=== PATIENT | male | born 1945 | race Caucasian/White ===

== ENCOUNTER 2018-04-16 11:51 | Inpatient (IN) | payer MEDICARE, OTHER ==
[~2018-04-16] VITALS: Ht 180.3 cm; Wt 100.4 kg
[2018-04-16] MEDS ORDERED: SODIUM CHLORIDE FLUSH 10 ML SYR INJ PRN (12:00)
[2018-04-16 13:18] LABS: BASOPHILS # (AUTO) 0.1 (0.0-0.1); BASOPHILS % 1.2 % (0.0-1.0); EOSINOPHILS # (AUTO) 0.2 (0.0-0.4); EOSINOPHILS % 2.7 % (0.0-6.0); HEMATOCRIT 47.8 % (38.2-49.6); HEMOGLOBIN 16.5 g/dL (14.0-18.0); LYMPHOCYTES # (AUTO) 1.9 (1.0-3.2); LYMPHOCYTES % 22.3 % (18.0-39.1); MEAN CORPUSCULAR HGB CONC 34.5 g/dL (31-35); MEAN CORPUSCULAR VOLUME 89.8 fL (81-99); MONOCYTES # (AUTO) 0.7 (0.2-0.8); MONOCYTES % 8.1 % (4.4-11.3); NEUTROPHILS # (AUTO) 5.5 (2.1-6.9); NEUTROPHILS % 65.2 % (38.7-80.0); PLATELET COUNT 206 x10e3/uL (140-360); RED BLOOD COUNT 5.32 x10e6/uL (4.3-5.7); RED CELL DISTRIBUTION WIDTH 12.7 % (11.7-14.4)
[2018-04-16] MEDS ORDERED: ASPIRIN 81 MG ENTERIC COATED PO SCH ×2 (13:30→21:00)
[2018-04-16 13:32] LABS: ALBUMIN 4.2 g/dL (3.5-5.0); ALBUMIN/GLOBULIN RATIO 1.3 (0.8-2.0); ANION GAP 16.6 mmol/L (8-16); CREATININE, SERUM 1.21 mg/dL (0.72-1.25); POTASSIUM 3.6 mmol/L (3.5-5.1)
[2018-04-16 14:06] VITALS: BP 185/84
[2018-04-16 14:09] LABS: CREATININE, SERUM 1.2 mg/dL (0.72-1.25)
[2018-04-16] MEDS ORDERED: GADOBENATE DIMEGLUMINE 1 ML IV ONE (14:21)
[2018-04-16] MEDS ORDERED: ASPIR 8181 MG PO (15:35)
[2018-04-16] MEDS ORDERED: METOPROLOL SUCC25 MG PO (15:35)
[2018-04-16] MEDS ORDERED: ZETIA10 MG PO (15:35)
[2018-04-16] MEDS ORDERED: LIPITOR40 MG PO (15:36)
[2018-04-16 16:15] VITALS: BP 187/85
[2018-04-16] MEDS ORDERED: ONDANSETRON HCL INJ 2 MG/ML VIAL IV PRN (17:00)
[2018-04-16] MEDS ORDERED: ACETAMINOPHEN 325 MG TAB PO PRN (17:00)
--- NOTE | 2018-04-16 17:18 | Diagnostic Imaging Report ---
History:Bitemporal hemianopsia Comparison studies: None Technique: Precontrast axial and coronal T1 and T2 and sagittal T2 through the orbits, Post-contrast axial and coronal T1 and coronal T2 through the orbits with fat saturation Intravenous contrast: 20 cc of MultiHance. Findings: Right orbit Globe: Normal in size and shape. No masses Intraconal space: No masses or abnormal enhancement. Optic nerve: Normal in size and signal. Extraocular muscles: Normal in size and symmetric Lacrimal gland: Normal in size. No masses. Left orbit Globe: Normal in size and shape. No masses Intraconal space: No masses or abnormal enhancement. Optic nerve: Normal in size and signal. Extraocular muscles: Normal in size and symmetric Lacrimal gland: Normal in size. No masses. Orbital apices: No abnormalities. Optic chiasm: Normal in size and signal intensity. Cavernous sinuses: Normal in size and symmetric. No masses. No signal abnormalities in the visualized sections through the brain. IMPRESSION: 1. Normal MRI of the orbits. 2. Refer to the brain MRI obtained at the same time for description of a partially visualized acute nonhemorrhagic enhancing right medial VASCULAR SURGERY PHYSICIAN temporo-occipital vascular insult. Signed by: Dr. Marcos Oliver M.D. on 04/16/2018 5:15 PM
--- NOTE | 2018-04-16 17:44 | Diagnostic Imaging Report ---
History: Bitemporal hemianopsia Comparison studies: None Technique: Pre-contrast: Sagittal T2; axial T1-IR, SWI, DWI, T2 FLAIR Post-contrast: Axial, coronal and sagittal T1. Intravenous contrast: 20 cc of MultiHance. Findings: Scalp: No abnormal signal. No masses. Bone marrow: Normal in signal intensity. Extra-axial: No masses, fluid collections or hemorrhage. Brain sulci: Appropriate for age. Ventricles: Normal in size . No hydrocephalus. Parenchyma: An acute nonhemorrhagic vascular insult (hyperintense on the T2 and T2 FLAIR and associated with restricted diffusion) centered in the inferomedial aspect of the right occipital lobe (lingula generous, extends anteriorly along the medial aspect of the right temporal lobe. It is associated with uniform enhancement. Mass effect is regional. No shift. No additional acute vascular insults. Scattered T2 FLAIR hyperintense foci in the supratentorial white matter are nonspecific small vessel ischemic changes. No masses, hemorrhage, additional acute or chronic vascular insults. No enhancing abnormalities. Suprasellar region: No abnormalities. Craniocervical junction: No abnormalities. Patent foramen magnum. No Chiari one malformation.. Vessels: Normal flow-voids in the arteries and sinuses. Incidental findings: Peripheral mucosal thickening in the maxillary sinus. IMPRESSION: 1. Focal acute cortical right medial temporo-occipital vascular insult has compromised the corresponding branches of the right ANALYTICAL STATISTICIAN. The occipital component is below the calcarine fissure. 2. No additional acute abnormalities. 3. Superimposed mild supratentorial white matter small vessel ischemic changes. 4. Dr. Jenkins notified of the findings on 04/16/2018 at 1740 hours. Signed by: Dr. Marcos Oliver M.D. on 04/16/2018 5:40 PM
[2018-04-16] MEDS ORDERED: ASPIRIN 81 MG CHEW TAB PO SCH (21:00)
[2018-04-16] MEDS ORDERED: ATORVASTATIN 40 MG TAB PO SCH (21:00)
[2018-04-16] MEDS ORDERED: NON-FORMULARY MEDICATION (Atorvastatin Calcium (Lipitor) 40 MG) PO SCH (21:00)
[2018-04-16] MEDS ORDERED: METOPROLOL SUCCINATE 25 MG TAB XL PO SCH (21:00)
[2018-04-16] MEDS ORDERED: EZETIMIBE 10 MG TAB PO SCH (21:00)
[2018-04-16 22:05] VITALS: BP 135/80
[2018-04-16 23:00] VITALS: BP 165/80
[2018-04-17] VITALS: BP_SYST 124; BP_SYST 134; BP_DIAS 68; BP_DIAS 77
[2018-04-17 05:53] LABS: ALANINE AMINOTRANSFERASE 35 IU/L (0-55); ALBUMIN 3.5 g/dL (3.5-5.0); ALBUMIN/GLOBULIN RATIO 1.2 (0.8-2.0); ALKALINE PHOSPHATASE 95 IU/L (40-150); ANION GAP 15.6 mmol/L (8-16); BLOOD UREA NITROGEN 16 mg/dL (7-26); BUN/CREATININE RATIO 15 (6-25); CALCIUM 9.5 mg/dL (8.4-10.2); CARBON DIOXIDE 21 mmol/L (22-29); CHLORIDE 106 mmol/L (98-107); CHOL/HDL RATIO 2.9 (3.9-4.7); CHOLESTEROL 101 MD/DL (0-199); CREATININE, SERUM 1.07 mg/dL (0.72-1.25); EST GLOMERULAR FILTRATION RATE > 60 ML/MIN (60-); GLUCOSE 135 mg/dL (74-118); HDL CHOLESTEROL 35 MG/DL (40-60); LDL CHOLESTEROL 36 MG/DL (60-130); PHOSPHORUS 3.1 MG/DL (2.3-4.7); POTASSIUM 3.6 mmol/L (3.5-5.1); SODIUM 139 mmol/L (136-145); TRIGLYCERIDES 152 MG/DL (0-149)
[2018-04-17 06:13] LABS: BASOPHILS # (AUTO) 0.1 (0.0-0.1); BASOPHILS % 0.8 % (0.0-1.0); EOSINOPHILS # (AUTO) 0.3 (0.0-0.4); EOSINOPHILS % 3.5 % (0.0-6.0); HEMATOCRIT 43.4 % (38.2-49.6); HEMOGLOBIN 15.2 g/dL (14.0-18.0); LYMPHOCYTES # (AUTO) 2.1 (1.0-3.2); LYMPHOCYTES % 24.1 % (18.0-39.1); MEAN CORPUSCULAR VOLUME 88.6 fL (81-99); MONOCYTES # (AUTO) 0.7 (0.2-0.8); MONOCYTES % 8.3 % (4.4-11.3); NEUTROPHILS # (AUTO) 5.6 (2.1-6.9); NEUTROPHILS % 63.1 % (38.7-80.0); PLATELET COUNT 185 x10e3/uL (140-360); RED CELL DISTRIBUTION WIDTH 12.6 % (11.7-14.4)
[2018-04-17 09:03] VITALS: BP 138/83
[2018-04-17 11:51] VITALS: BP 139/79
--- NOTE | 2018-04-17 14:58 | Discharge Summary ---
PRIMARY CARE DOCTOR: Dr. Martín Sethi. FINAL DIAGNOSIS: Acute right medial temporal-occipital stroke. SECONDARY DIAGNOSES 1. Dyslipidemia. 2. Hypertension. CONSULTANTS: Dr. Odom, neurology. PROCEDURES/STUDIES PERFORMED 1. Magnetic resonance imaging of the brain. 2. Echocardiogram. 3. Carotid ultrasound. HISTORY: Per H&P. HOSPITAL COURSE: Patient's vision remained unchanged but not significantly impaired. On MRI patient was found to have an acute stroke that is causing his vision deficit. Since patient is already on aspirin, he was switched to Plavix per Neurology. Patient is to continue his Lipitor at home. He was also diagnosed with right 99% carotid stenosis. He will follow up with Dr. Garcia in one week for management. Patient was seen and examined today. CONDITION ON DISCHARGE: Stable. DISCHARGE MEDICATIONS: Please see medication reconciliation form. SALO JASMINE M.D. Job#: [id number] EV cc: MARTÍN SETHI MD MTDD
[2018-04-17 15:57] VITALS: BP 155/92
--- NOTE | 2018-04-17 17:00 | Diagnostic Imaging Report ---
Exam: Cervical CTA History: Stroke Comparison studies:MRI brain from 04/16/2018. Additional History: A 72-year-old gentleman with weakness and vertigo found to have a right posterior cerebral artery territory vascular insult presents for evaluation of the carotid arteries. Technique: Axial images were obtained from the thoracic inlet. Coronal and sagittal images reconstructed from the axial data.Images were reviewed in multiplanar and 3-dimensional format. Dose modulation, iterative reconstruction, and/or weight based adjustment of the mA/kV was utilized to reduce the radiation dose to as low as reasonably achievable. Intravenous contrast: 100 cc of Isovue 370. Findings: Please note, any potential stenosis at the carotid bulbs is measured utilizing NASCET criteria which compares the narrowest ICA diameter at the carotid bulb to the diameter of the normal distal cervical ICA. Exam quality: Somewhat limited evaluation given motion artifacts at the level of the aortic arch and takeoff of the great vessels, as well as, beam hardening related to the contrast bolus and the hand overlying the chest. Aortic arch and major vessels: Calcific atherosclerosis of the aortic arch. Origins of the great vessels are widely patent. Common carotid arteries: Patent. No abnormalities. Right internal carotid artery: Hard and soft plaque about the carotid bulb results in short segment (approximately 2 cm) near complete occlusion (90%) of the proximal aspect of the right internal carotid artery cervical segment immediately distal to the bifurcation. The more distal cervical segment is widely patent. Calcific atherosclerosis of the carotid siphons without stenosis. Left internal carotid artery: Hard and soft plaque ulcerated plaque about the carotid bulb results in short segment (approximately 1.5 cm) moderate severity occlusion (65%) of the proximal aspect of the left internal carotid artery cervical segment immediately distal to the bifurcation. The more distal cervical segment is widely patent. Calcific atherosclerosis of the carotid siphons without stenosis. Right vertebral artery: Kinking of the V1 segment of the right vertebral artery just distal to the origin. Otherwise, widely patent without abnormality. Left vertebral artery: Heavily calcified plaque at the origin of the left vertebral artery results in high-grade focal stenosis which may be overestimated on CT angiogram. Cervical spine: Straightening of the normal cervical lordosis. Moderately degenerated disc at C5-C6 and mildly degenerated disc at C6-C7. Disc osteophyte complex at C5-C6 results in mild canal stenosis. Degenerative foraminal stenoses: mild bilaterally at C5-C6, and moderate on the right and mild on the left at C6-C7. IMPRESSION: 1. Near complete occlusion (90%) of the proximal right internal carotid artery. 2. Moderate severity occlusion (65%) of the proximal left internal carotid artery. 3. High-grade stenosis of the proximal left vertebral artery. A preliminary report was provided by Dr. Menjivar on 04/17/2018 4:58 PM. I have reviewed the images and agree with the findings in the preliminary report. Signed by: Dr. Kita Jane M.D. on 04/17/2018 8:08 PM
[2018-04-17] MEDS ORDERED: PLAVIX75 MG PO (19:22)
[2018-04-17 19:30] VITALS: BP 164/87
[2018-04-17] MEDS ORDERED: SODIUM CHLORIDE 0.9% 100 ML 100 ML ONE (22:32)
[2018-04-17] MEDS ORDERED: IOPAMIDOL 370 MG/ML 200 ML INFUS..BTL INJ ONE (22:32)
--- NOTE | 2018-04-18 00:20 | Consultation ---
DATE OF CONSULTATION: April 17, 2018 NEUROLOGY CONSULT NOTE HISTORY OF PRESENT ILLNESS: Mr. Mcfadden is a 72-year-old right hand dominant man with past medical history significant for hypertension and hyperlipidemia, admitted to [facility] on April 16, 2018, with symptoms concerning for stroke. Approximately 1 week prior to admission, the patient experienced the sudden onset of a visual disturbance which is further described as " quivering of the peripheral vision in both eyes," vertigo, and a severe headache at the right denominational. These symptoms began at approximately 20:00. Mr. Mcfadden took 2 doses of Tylenol for the headache. When the headache did not improve, he took an unknown oral pain medication and went to bed. The following morning, the patient's headache and vertigo had resolved. His diminished peripheral vision had mildly improved but was still present. Mr. Mcfadden scheduled an appointment with his primary care physician to discuss his symptoms. His primary care physician in turn referred him to an bottom turner for further evaluation. According to Mr. Mcfadden, the bottom turner noted diminishment of his peripheral vision as well as "some blind spots". Mr. Mcfadden reports the bottom turner spoke with his primary care physician, and both agreed he should proceed to the emergency center at [facility] for admission so he could undergo an MRI of the brain to determine whether or not he had had a stroke. Mr. Mcfadden does not report dysarthria, aphasia, facial droop, hemiparesis, hemihypesthesia, poor balance, gait impairment, or confusion associated with the above symptoms. He has not experienced similar symptoms previously. Mr. Mcfadden has been told to take an aspirin 81 mg by mouth daily. He endorses compliance with his medication. REVIEW OF SYSTEMS: Constipation, visual disturbance, vertigo, and headache. Otherwise, a 12-point review of systems is negative. PAST MEDICAL HISTORY: Hypertension, hyperlipidemia. PAST SURGICAL HISTORY: Lumbar spine surgery x2, bilateral cataract removal, and right rotator cuff repair. PAST HOSPITALIZATIONS: Surgeries/procedures as listed. FAMILY MEDICAL HISTORY: The patient's paternal and maternal grandparents are . Both grandfathers are from coronary artery disease with myocardial infarction. Both grandmothers are from natural causes/old age. The patient's father is from coronary artery disease with myocardial infarction. His mother is from natural causes/old age. Mr. Mcfadden had 2 half-siblings, a half brother and a half sister, both of whom are . His half brother is from prostate cancer. His half sister is from coronary artery disease with a myocardial infarction. Mr. Mcfadden had 2 sons. One is from coronary artery disease with a myocardial infarction. The second son is alive and healthy. SOCIAL HISTORY: The patient is . He is retired. Mr. Mcfadden reports prior tobacco use, but he stopped smoking cigarettes approximately 35+ years ago. The patient reports occasional alcohol use. He does not report current or prior recreational drug use. HOME MEDICATIONS 1. Aspirin 81 mg by mouth daily. 2. Metoprolol 25 mg by mouth at bedtime daily. 3. Atorvastatin 40 mg by mouth at bedtime daily. 4. Zetia 10 mg by mouth at bedtime daily. ALLERGIES: NO KNOWN DRUG ALLERGIES. NO KNOWN FOOD ALLERGIES. NO KNOWN ALLERGIES TO LATEX. NO KNOWN ALLERGIES TO IODINE OR OTHER CONTRAST MATERIALS. PHYSICAL EXAMINATION VITAL SIGNS: Height 71 inches, weight 221 pounds, BMI 30.9 kg per meter squared. Blood pressure 155/92 mmHg, pulse 76 beats per minute, respiratory rate 20 breaths per minute, and oxygen saturation 94% on room air. GENERAL: The patient is awake and alert. Does not appear distressed. Obese. HEENT: Normocephalic, atraumatic. Pupils are equal, round, and reactive to light. Moist mucous membranes. NECK: Supple. No appreciable thyromegaly. No appreciable carotid bruits. CARDIOVASCULAR: S1, S2, regular rate and rhythm. No murmurs, rubs, or gallops. RESPIRATORY: Clear to auscultation bilaterally. No wheezes, rhonchi, or rales. EXTREMITIES: Skin is warm and dry. No clubbing, cyanosis, or edema. The posterior tibial and dorsalis pedis pulses are 1+ and symmetric. SKIN: No rashes or lesions. NEUROLOGIC Memory/Attention: The patient is awake and alert, oriented to person, place, time, and situation. Cranial Nerves: Cranial nerve I: Not tested. Cranial nerve II, III, IV, and : Pupils are equal and round, react briskly to light (from 4 mm to 2 mm). Extraocular movements intact. No nystagmus. 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 Cranial nerve V: Sensation to light touch and pinprick is intact in the bilateral V1 through V3 distributions. Strength of the temporalis and masseter muscles is within normal limits. Cranial nerve VII: The face is symmetric as are all facial movements. Strength is within normal limits. Cranial nerve VIII: Hearing is intact to finger rub bilaterally. Cranial nerve IX, X: The soft palate elevates equally and symmetrically. Cranial nerve XI: Normal strength of the bilateral sternocleidomastoid and trapezius muscles. Cranial nerve XII: The tongue protrudes in midline and moves symmetrically from side to side. Strength: Bulk is normal. Strength is 5/5 in the bilateral deltoids, biceps, triceps, wrist flexors and extensors, finger flexors and extensors, intrinsic hand muscles, hip flexors, knee flexors and extensors, ankle dorsiflexion and plantar flexion, and intrinsic foot muscles. Tone is normal. DTRs: Deep tendon reflexes are 2+ and symmetric at the triceps, biceps, brachioradialis, and patellae. Deep tendon reflexes are trace and symmetric at the Achilles. Plantar responses are flexor bilaterally. Sensation: Sensation is intact to light touch and pinprick in both arms and both legs. Cerebellar: Gwqnlr-[id number]-clrvfx and heel-bernabe movements are intact without dysmetria or other impairment. Gait: Deferred. Speech: Spontaneous speech is normal without appreciable dysarthria or aphasia. Repetition is intact. Involuntary Movements: None. Pronator Drift: None. LABORATORY DATA: The patient's comprehensive metabolic panel is significant for carbon dioxide level of 21, an elevated serum glucose of 135, a mildly elevated total bilirubin of 1.8, and a low total protein of 6.4. Total cholesterol 101, triglycerides 152, LDL cholesterol 36, and HDL cholesterol 35. The hemoglobin A1c is 5.9. CBC with differential and platelets shows a normal white blood cell count with a normal differential. The hemoglobin and hematocrit are within normal limits as is the platelet count. DIAGNOSTIC STUDIES: Brain MRI, April 16, 2018: There is an acute ischemic stroke in the right medial temporal occipital region. The vascular insult corresponds to the right posterior cerebral artery distribution. Cerebral volumes are appropriate for age. There are nonspecific scattered T2/flair hyperintense foci of the supratentorial white matter compatible with mild chronic small vessel ischemic disease. MRI of the orbit April 16, 2018: Normal MRI of the orbit. Echocardiogram April 16, 2018: Ejection fraction 50% to 55%. Concentric left ventricular hypertrophy. Mild to moderate aortic insufficiency. Trace pulmonic insufficiency. Mild mitral and tricuspid regurgitation. Bilateral carotid artery ultrasound with Doppler, April 17, 2018: There is atherosclerosis without hemodynamically significant stenosis at the bilateral carotid bulbs and bifurcations. There is atherosclerosis with hemodynamically significant stenosis at the bilateral internal carotid arteries. Flow is antegrade in the bilateral vertebral arteries. CTA of the neck, April 17, 2018 1. Near complete occlusion (99%) of the proximal right internal carotid artery. 2. Moderate severity occlusion (60%) of the proximal left internal carotid artery. 3. High-grade stenosis of the proximal left vertebral artery. ASSESSMENT: Mr. Mcfadden is a 72-year-old right hand dominant man with vascular risk factors admitted to [facility] with a stroke. Other than a superior outer quadrantanopsia of the of the left eye, the patient's neurological examination is nonfocal. Mr. Mcfadden's laboratory data and other diagnostic studies have been reviewed and are documented above. Mr. Mcfadden has undergone a complete stroke evaluation with the findings as detailed. RECOMMENDATIONS 1. Discontinue aspirin. Plavix 75 mg by mouth daily will be prescribed for stroke prophylaxis. 2. Due to the presence of severe atherosclerotic disease in the right internal carotid artery, it is recommended the patient's blood pressures remain mildly elevated. An approximate goal is 140/90 mmHg. The patient's blood pressures are currently at this goal with metoprolol 25 mg by mouth daily. Treatment with this medication may be continued. 3. The patient's goal total cholesterol is less than 200 with an LDL of less than 70. Mr. Mcfadden's cholesterol is at goal. Continue with current home medications. 4. The patient's hemoglobin A1c is 5.9. His goal hemoglobin A1c is 7.0. Mr. Mcfadden should follow up with his primary care physician at routine intervals for continued monitoring. Adjustments to the patient's diet and exercise regimen are recommended to improve his serum glucoses. 5. Mr. Mcfadden should follow up with the cardiovascular surgeon within the next 2 weeks to discuss right carotid endarterectomy or stent placement. 6. Mr. Mcfadden may be discharged to home. Follow up as an outpatient in my office in 3 months. Thank you for this consultation. There are no other recommendations from the neurology service at this time. TIME SPENT: 70 minutes. Job#: [id number] CF MTDD
== END 2018-04-17 19:54 | disposition home or self-care (01) | DRG 66 ==
LOC: ER 11:51 → ERHOLD 12:00 → MED/SURG 13:54
PROVIDERS: ADMIT Internal Medicine; ATTEND Internal Medicine
DX: I63.531 Cerebral infarction due to unspecified occlusion or stenosis of right posterior cerebral artery (principal); H53.462 Homonymous bilateral field defects, left side; I10 Essential (primary) hypertension; E78.5 Hyperlipidemia, unspecified; Z87.891 Personal history of nicotine dependence; I65.23 Occlusion and stenosis of bilateral carotid arteries; I65.02 Occlusion and stenosis of left vertebral artery; Z79.82 Long term (current) use of aspirin
CPT/HCPCS: 36415; 70498; 70543; 70553; 80053; 80061; 82565; 83036; 83735; 84100; 84520; 85025; 93306; 93880; 99284; Q9967

== ENCOUNTER 2024-10-14 13:11 | Inpatient (IN) | payer MEDICARE ==
[~2024-10-14] VITALS: Ht 180.3 cm; Wt 103.4 kg
[2024-10-14] VITALS (10 sets, daily range): BP systolic 96–125; BP diastolic 50–76; PULSE 69–91; RESP 16–20; TEMP 97.3–98.8; O2SAT 96–100
[~2024-10-14 13:11] MED LIST: ASPIR 8181 MG PO; CEPHALEXIN500 MG PO; ELIQUIS5 MG PO; LIPITOR40 MG PO; METOPROLOL SUCC25 MG PO; PLAVIX75 MG PO; TOPROL XL50 MG PO; ULTRAM 50MG50 MG PO; ZETIA10 MG PO
[2024-10-14 13:46] LABS: BASOPHILS # (AUTO) 0.1 (0.0-0.1); BASOPHILS % 0.6 % (0.0-1.0); EOSINOPHILS # (AUTO) 0.1 (0.0-0.4); EOSINOPHILS % 1.2 % (0.0-6.0); HEMATOCRIT 47.5 % (38.2-49.6); HEMOGLOBIN 15.7 g/dL (14.0-18.0); LYMPHOCYTES # (AUTO) 0.8 (1.0-3.2); LYMPHOCYTES % 10.2 % (18.0-39.1); MEAN CORPUSCULAR HEMOGLOBIN 28.3 pg (28-32); MEAN CORPUSCULAR HGB CONC 33.1 g/dL (31-35); MEAN CORPUSCULAR VOLUME 85.7 fL (81-99); MONOCYTES # (AUTO) 0.7 (0.2-0.8); MONOCYTES % 9.3 % (4.4-11.3); NEUTROPHILS # (AUTO) 6.1 (2.1-6.9); NEUTROPHILS % 78.3 % (38.7-80.0); PLATELET COUNT 168 x10e3/uL (140-360); RED BLOOD COUNT 5.54 x10e6/uL (4.3-5.7); RED CELL DISTRIBUTION WIDTH 15.8 % (11.7-14.4); WHITE BLOOD COUNT 7.76 x10e3/uL (4.8-10.8)
[2024-10-14] MEDS: SODIUM CHLORIDE 0.9% 1000ML 1,000 ML IV SCH (13:51)
[2024-10-14 14:14] LABS: ALBUMIN 4.8 g/dL (3.5-5.0); ALBUMIN/GLOBULIN RATIO 1.5 (0.8-2.0); ANION GAP 20.4 mmol/L (8-16); BILIRUBIN,TOTAL 3.4 mg/dL (0.2-1.2); CALCIUM 10.3 mg/dL (8.4-10.2); CREATININE, SERUM 2.27 mg/dL (0.72-1.25); POTASSIUM 3.4 mmol/L (3.5-5.1)
[2024-10-14] MEDS ORDERED: ONDANSETRON HCL INJ 2MG/ML 2ML 2 MG/ML VIAL IV PRN (14:15)
[2024-10-15] MEDS: Morphine 4mg INJECTION 4 MG/ML INJ IV PRN (00:21)
[2024-10-15 05:13] LABS: BASOPHILS # (AUTO) 0.1 (0.0-0.1); BASOPHILS % 1.1 % (0.0-1.0); EOSINOPHILS # (AUTO) 0.2 (0.0-0.4); EOSINOPHILS % 3.4 % (0.0-6.0); HEMATOCRIT 40.8 % (38.2-49.6); HEMOGLOBIN 13.5 g/dL (14.0-18.0); LYMPHOCYTES # (AUTO) 1.2 (1.0-3.2); LYMPHOCYTES % 18.7 % (18.0-39.1); MEAN CORPUSCULAR HEMOGLOBIN 28.5 pg (28-32); MEAN CORPUSCULAR HGB CONC 33.1 g/dL (31-35); MEAN CORPUSCULAR VOLUME 86.1 fL (81-99); MONOCYTES # (AUTO) 0.8 (0.2-0.8); MONOCYTES % 12.1 % (4.4-11.3); NEUTROPHILS # (AUTO) 4.2 (2.1-6.9); NEUTROPHILS % 64.4 % (38.7-80.0); PLATELET COUNT 140 x10e3/uL (140-360); RED BLOOD COUNT 4.74 x10e6/uL (4.3-5.7); RED CELL DISTRIBUTION WIDTH 15.8 % (11.7-14.4); WHITE BLOOD COUNT 6.46 x10e3/uL (4.8-10.8)
[2024-10-15 05:47] LABS: ANION GAP 19.4 mmol/L (8-16); CALCIUM 9.5 mg/dL (8.4-10.2); CREATININE, SERUM 1.95 mg/dL (0.72-1.25)
[2024-10-15 05:52] LABS: POTASSIUM 3.4 mmol/L (3.5-5.1)
[2024-10-15 07:10] VITALS: BP 105/62; PULSE 67; RESP 17; TEMP 97.9; O2SAT 98
[2024-10-15] MEDS ORDERED: TRAMADOL HCL 50 MG TAB PO PRN (07:15)
[2024-10-15] MEDS ORDERED: METOPROLOL TARTRATE INJ 1 MG/ML VIAL IV PRN (07:15)
[2024-10-15] MEDS ORDERED: MELATONIN 3 MG TAB PO PRN (07:15)
[2024-10-15] MEDS ORDERED: ALBUTEROL/IPRATROPIUM 3 ML NEB NEB PRN (07:15)
[2024-10-15 07:39] LABS: CHOL/HDL RATIO 2.5 (3.9-4.7)
[2024-10-15 08:38] VITALS: BP 105/62; PULSE 67; RESP 17; TEMP 97.7; O2SAT 98
[2024-10-15] MEDS: SODIUM CHLORIDE 0.9% 1000ML 1,000 ML IV SCH (08:58)
[2024-10-15 09:16] VITALS: PULSE 83; RESP 17; O2SAT 98
[2024-10-15 11:05] VITALS: BP 171/102; PULSE 86; RESP 16; TEMP 97.6; O2SAT 94
[2024-10-15] MEDS ORDERED: ATORVASTATIN CA20 MG PO (12:35)
[2024-10-15] MEDS ORDERED: TORSEMIDE20 MG PO ×2 (12:35)
[2024-10-15] MEDS ORDERED: POTASSIUM CHLO10 ME1 PO (12:35)
[2024-10-15] MEDS ORDERED: COREG6.25 MG PO (12:35)
[2024-10-15] MEDS ORDERED: ZETIA10 MG PO (12:35)
[2024-10-15] MEDS ORDERED: VYNDAMAX61 MG PO (12:35)
[2024-10-15] MEDS ORDERED: AMIODARONE HCL200 MG PO (12:35)
[2024-10-15] MEDS ORDERED: SPIRONOLACTONE25 MG PO (12:35)
[2024-10-15] MEDS ORDERED: FARXIGA5 MG PO (12:35)
[2024-10-15] MEDS ORDERED: ASPIRIN81 MG PO (12:35)
[2024-10-15 15:09] VITALS: PULSE 83; RESP 17; O2SAT 98
[2024-10-15] MEDS: EZETIMIBE 10 MG TAB PO SCH (20:40)
[2024-10-15] MEDS: ATORVASTATIN 40 MG TAB PO SCH (20:40)
[2024-10-15] MEDS: METOPROLOL SUCCINATE 50 MG TAB XL PO SCH (20:41)
[2024-10-15 21:00] VITALS: BP 120/87; PULSE 75; RESP 20; TEMP 97.5; O2SAT 97
[2024-10-16] VITALS (11 sets, daily range): BP systolic 103–130; BP diastolic 54–73; PULSE 62–85; RESP 17–18; TEMP 97.4–97.5; O2SAT 95–99
[2024-10-16 05:41] LABS: BASOPHILS # (AUTO) 0.1 (0.0-0.1); EOSINOPHILS # (AUTO) 0.2 (0.0-0.4); EOSINOPHILS % 2.6 % (0.0-6.0); HEMATOCRIT 43.2 % (38.2-49.6); HEMOGLOBIN 13.9 g/dL (14.0-18.0); LYMPHOCYTES # (AUTO) 1.1 (1.0-3.2); LYMPHOCYTES % 18.1 % (18.0-39.1); MEAN CORPUSCULAR HEMOGLOBIN 28.5 pg (28-32); MEAN CORPUSCULAR HGB CONC 32.2 g/dL (31-35); MEAN CORPUSCULAR VOLUME 88.7 fL (81-99); MONOCYTES # (AUTO) 0.6 (0.2-0.8); MONOCYTES % 9.9 % (4.4-11.3); NEUTROPHILS # (AUTO) 4.2 (2.1-6.9); NEUTROPHILS % 68.1 % (38.7-80.0); PLATELET COUNT 145 x10e3/uL (140-360); RED BLOOD COUNT 4.87 x10e6/uL (4.3-5.7); RED CELL DISTRIBUTION WIDTH 15.9 % (11.7-14.4); WHITE BLOOD COUNT 6.19 x10e3/uL (4.8-10.8)
[2024-10-16 06:11] LABS: ANION GAP 17.1 mmol/L (8-16); CALCIUM 9.4 mg/dL (8.4-10.2); CREATININE, SERUM 2.07 mg/dL (0.72-1.25); POTASSIUM 4.1 mmol/L (3.5-5.1)
[2024-10-16] MEDS: CLOPIDOGREL BISULFATE 75 MG TAB PO SCH (09:56)
[2024-10-16] MEDS: DOCUSATE SODIUM 100 MG CAP PO PRN (09:58)
[2024-10-16] MEDS: ALLOPURINOL 100 MG TAB PO SCH (13:54)
[2024-10-16] MEDS: METHYLPREDNISOLONE SOD SUCC 40 MG/ML VIAL 1ML IV SCH (13:55)
[2024-10-17 06:08] LABS: BASOPHILS % 0.1 % (0.0-1.0); HEMATOCRIT 40.6 % (38.2-49.6); HEMOGLOBIN 13.1 g/dL (14.0-18.0); LYMPHOCYTES % 6.1 % (18.0-39.1); MEAN CORPUSCULAR HGB CONC 32.3 g/dL (31-35); MEAN CORPUSCULAR VOLUME 86.6 fL (81-99); MONOCYTES % 1.3 % (4.4-11.3); PLATELET COUNT 140 x10e3/uL (140-360); RED BLOOD COUNT 4.68 x10e6/uL (4.3-5.7); RED CELL DISTRIBUTION WIDTH 15.7 % (11.7-14.4); WHITE BLOOD COUNT 7.67 x10e3/uL (4.8-10.8)
[2024-10-17 06:09] LABS: LYMPHOCYTES # (AUTO) 0.5 (1.0-3.2); MONOCYTES # (AUTO) 0.1 (0.2-0.8); NEUTROPHILS # (AUTO) 7.1 (2.1-6.9)
[2024-10-17 06:12] LABS: CREATININE, SERUM 2.03 mg/dL (0.72-1.25)
[2024-10-17 06:48] VITALS: PULSE 85; RESP 22; O2SAT 95
[2024-10-17 10:23] VITALS: BP 109/55; PULSE 73; RESP 18; TEMP 97.2; O2SAT 97
[2024-10-17 10:36] VITALS: BP 109/55; PULSE 73; RESP 18; TEMP 97.2; O2SAT 97
[2024-10-17 17:10] VITALS: BP 121/64; PULSE 73; RESP 20; TEMP 98.1; O2SAT 98
[2024-10-17 20:00] VITALS: BP 125/66; PULSE 70; RESP 20; TEMP 98.2; O2SAT 98
[2024-10-17 20:10] VITALS: PULSE 86; RESP 20; O2SAT 95
[2024-10-17] MEDS: ENOXAPARIN SODIUM INJ 100 MG/ML SYR SC SCH (20:16)
[2024-10-18] VITALS (8 sets, daily range): BP systolic 120–127; BP diastolic 66–80; PULSE 65–81; RESP 18–21; TEMP 97.4–98.2; O2SAT 94–99
[2024-10-19] VITALS (9 sets, daily range): BP systolic 120–135; BP diastolic 70–94; PULSE 55–75; RESP 18–20; TEMP 97.2–98.7; O2SAT 95–100
[2024-10-20] VITALS (7 sets, daily range): BP systolic 135–154; BP diastolic 70–88; PULSE 73–87; RESP 17–20; TEMP 96.7–97.4; O2SAT 95–97
[2024-10-20 06:24] LABS: BASOPHILS % 0.1 % (0.0-1.0); HEMATOCRIT 42.3 % (38.2-49.6); HEMOGLOBIN 13.7 g/dL (14.0-18.0); LYMPHOCYTES # (AUTO) 0.5 (1.0-3.2); LYMPHOCYTES % 3.6 % (18.0-39.1); MEAN CORPUSCULAR HEMOGLOBIN 28.4 pg (28-32); MEAN CORPUSCULAR HGB CONC 32.4 g/dL (31-35); MEAN CORPUSCULAR VOLUME 87.8 fL (81-99); MONOCYTES # (AUTO) 0.4 (0.2-0.8); MONOCYTES % 3.2 % (4.4-11.3); NEUTROPHILS # (AUTO) 12.5 (2.1-6.9); NEUTROPHILS % 92.2 % (38.7-80.0); PLATELET COUNT 137 x10e3/uL (140-360); RED BLOOD COUNT 4.82 x10e6/uL (4.3-5.7); RED CELL DISTRIBUTION WIDTH 16.1 % (11.7-14.4); WHITE BLOOD COUNT 13.56 x10e3/uL (4.8-10.8)
[2024-10-20 06:55] LABS: ALBUMIN 3.5 g/dL (3.5-5.0); ALBUMIN/GLOBULIN RATIO 1.3 (0.8-2.0); BILIRUBIN,TOTAL 1.7 mg/dL (0.2-1.2); CALCIUM 9.4 mg/dL (8.4-10.2); CREATININE, SERUM 1.76 mg/dL (0.72-1.25); MAGNESIUM 2.8 MG/DL (1.3-2.1); PHOSPHORUS 4.4 MG/DL (2.3-4.7); TOTAL PROTEIN 6.2 g/dL (6.5-8.1)
[2024-10-20] MEDS ORDERED: FENTANYL CITRATE/PF 100MCG/2 ML INJ ONE (12:32)
[2024-10-20] MEDS ORDERED: LIDOCAINE HCL 2% LOCAL INJ 5 ML SDV VIAL INJ ONE (12:32)
[2024-10-20] MEDS ORDERED: PROPOFOL IV EMULSION 10 MG/ML 20 ML VIAL ONE (12:33)
[2024-10-20] MEDS: INSULIN GLARGINE 100 UNITS/ML VIAL SQ SCH (23:17)
[2024-10-21 00:17] VITALS: BP 129/83; PULSE 73; RESP 18; TEMP 97.7; O2SAT 98
[2024-10-21 04:56] VITALS: BP 131/79; PULSE 72; RESP 18; TEMP 97.5; O2SAT 97
[2024-10-21] MEDS ORDERED: ALLOPURINOL100 MG PO (07:49)
[2024-10-21] MEDS ORDERED: CEPHALEXIN500 MG PO (07:49)
[2024-10-21] MEDS ORDERED: LANTUS 3ML100 UNITS/ SC (07:49)
[2024-10-21] MEDS ORDERED: ULTRAM 50MG50 MG PO (07:51)
[2024-10-21] MEDS ORDERED: ACETAMINOPHEN325 M1 PO (07:51)
[2024-10-21 08:14] VITALS: BP 135/97; PULSE 88; RESP 18; TEMP 97.6; O2SAT 97
[2024-10-21 08:18] VITALS: PULSE 71; RESP 18; O2SAT 94
[2024-10-21] MEDS: SODIUM BICARBONATE 650 MG TAB PO SCH (08:47)
[2024-10-21 08:52] LABS: BASOPHILS % 0.1 % (0.0-1.0); HEMATOCRIT 42.7 % (38.2-49.6); HEMOGLOBIN 13.7 g/dL (14.0-18.0); LYMPHOCYTES # (AUTO) 0.4 (1.0-3.2); MEAN CORPUSCULAR HGB CONC 32.1 g/dL (31-35); MEAN CORPUSCULAR VOLUME 87.1 fL (81-99); MONOCYTES # (AUTO) 0.4 (0.2-0.8); MONOCYTES % 3.5 % (4.4-11.3); NEUTROPHILS # (AUTO) 9.3 (2.1-6.9); NEUTROPHILS % 91.9 % (38.7-80.0); PLATELET COUNT 138 x10e3/uL (140-360); RED CELL DISTRIBUTION WIDTH 16.1 % (11.7-14.4); WHITE BLOOD COUNT 10.09 x10e3/uL (4.8-10.8)
[2024-10-21 08:59] LABS: CALCIUM 9.2 mg/dL (8.4-10.2); CREATININE, SERUM 1.51 mg/dL (0.72-1.25)
[2024-10-21 09:50] VITALS: BP 135/97; PULSE 88; RESP 18; TEMP 97.6; O2SAT 97
[2024-10-21 11:58] VITALS: BP 138/68; PULSE 86; RESP 18; TEMP 97.9; O2SAT 98
== END 2024-10-21 11:30 | disposition home or self-care (01) | DRG 617 ==
LOC: ER 13:23 → ERHOLD 14:04 → MED/SURG3 15:20
PROVIDERS: ADMIT Internal Medicine; ATTEND Internal Medicine
PROC: 0Y6S0Z2 Detachment at Left 2nd Toe, Mid, Open Approach (ICD-10-PCS; principal; 2024-10-20 12:36)
DX: E11.69 Type 2 diabetes mellitus with other specified complication (principal); E11.52 Type 2 diabetes mellitus with diabetic peripheral angiopathy with gangrene; E87.20 Acidosis, unspecified; R17 Unspecified jaundice; I48.20 Chronic atrial fibrillation, unspecified; M86.172 Other acute osteomyelitis, left ankle and foot; E11.621 Type 2 diabetes mellitus with foot ulcer; E11.42 Type 2 diabetes mellitus with diabetic polyneuropathy; N17.0 Acute kidney failure with tubular necrosis; E11.22 Type 2 diabetes mellitus with diabetic chronic kidney disease; B95.61 Methicillin susceptible Staphylococcus aureus infection as the cause of diseases classified elsewhere; L97.504 Non-pressure chronic ulcer of other part of unspecified foot with necrosis of bone; N18.32 Chronic kidney disease, stage 3b; L03.032 Cellulitis of left toe; E78.00 Pure hypercholesterolemia, unspecified; I25.10 Atherosclerotic heart disease of native coronary artery without angina pectoris; E83.52 Hypercalcemia; Z68.31 Body mass index [BMI] 31.0-31.9, adult; E66.9 Obesity, unspecified; M1A.9XX1 Chronic gout, unspecified, with tophus (tophi); B96.29 Other Escherichia coli [E. coli] as the cause of diseases classified elsewhere; Z79.01 Long term (current) use of anticoagulants; Z79.02 Long term (current) use of antithrombotics/antiplatelets; Z95.1 Presence of aortocoronary bypass graft; Z89.421 Acquired absence of other right toe(s); Z86.73 Personal history of transient ischemic attack (TIA), and cerebral infarction without residual deficits; Z82.49 Family history of ischemic heart disease and other diseases of the circulatory system
CPT/HCPCS: 36415; 76000; 76770; 80048; 80053; 80061; 82948; 83036; 83605; 83735; 84100; 84550; 85025; 87040; 87071; 87075; 87186; 87205; 88304; 88305; 88311; 93005; 93306; 93925; 94799; 99252; 99284; J1650; J1815; J2003; J2270; J2543; J2919; J7030